=== PATIENT | female | born 1990 | race Caucasian/White ===

== ENCOUNTER 2021-03-16 12:38 | Emergency (ER) | payer OTHER, SELFPAY ==
[2021-03-16 12:51] VITALS: BP 141/111; PULSE 77; RESP 17; TEMP 36.6; O2SAT 99
--- NOTE | 2021-03-16 12:52 | ED.ALLEREA ---
HPI - Allergic Reaction General Chief complaint: Upper Respiratory Infection Stated complaint: Red Eyes,Itchy Throat Time Seen by Provider: 03/16/21 13:15 Source: patient and RN notes reviewed Mode of arrival: ambulatory Limitations: no limitations History of Present Illness HPI narrative: 30-year-old female presents with concern for 2-day history of red eyes, clogged ears, itchy throat. Reports she rubbed her left eye and the eye became swollen, irritated, more red. Reports she used [id number] eye redness drops and it made the redness in her eyes worse. Reports she takes Zyrtec daily and took Benadryl last night. She denies swollen lips, swollen tongue, difficulty swallowing, cough, shortness of breath. Denies any known allergy triggers. Denies known sick exposure. MD complaint: other (Eye redness) Related Data Home Medications Medication Instructions Recorded Confirmed drospirenone-ethinyl estradiol 1 tablet PO DAILY 03/16/21 03/16/21 [Ana (28)] Allergies Allergy/AdvReac Type Severity Reaction Status Date / Time iodine Allergy Itching Verified 03/16/21 13:02 Review of Systems Review of Systems: Narrative: CONSTITUTIONAL: Denies malaise, chills, sweats, or fever. EYES: Denies visual changes. Reports bilateral redness, watery discharge; reports left eye redness, swelling, irritation or worse. ENT: Denies rhinorrhea, congestion, sinus pain, otalgia. Reports scratchy sore throat. CARDIOVASCULAR: Denies chest pain, palpitations, or edema. RESPIRATORY: Denies cough or dyspnea. GASTROINTESTINAL: Denies abdominal pain, nausea, vomiting, diarrhea SKIN: Denies rash or itching. MUSCULOSKELETAL: Denies myalgia. NEUROLOGIC: Denies headache. All systems reviewed & are unremarkable except as noted in HPI and below PMFSH Social History Social History Gender identity (if verbalized by the patient): Female Comments At time of signature, agree with nursing past medical, surgical, social and family history. There is no relevant family history pertinent to the presenting complaint Exam Narrative: Exam Narrative: GENERAL: Well-appearing, well-nourished, and in no acute distress. HEAD: Normocephalic, atraumatic. EYES: PERRLA and EOMI. No nystagmus. Bilateral sclera injected, left conjunctive a injected, mild upper and lower left lid superficial edema, no purulent drainage noted ENT: Nares clear. Mucous membranes moist. TM pearly bonner with dull light reflex bilaterally; no tragal tenderness. Oropharynx without erythema or lesions. Tonsils not enlarged and without exudate. NECK: Supple. No lymphadenopathy. CHEST: No respiratory distress. Clear to auscultation. No bony deformities, no asymmetry. Speaks in full sentences. HEART: Regular rate and rhythm. SKIN: Warm, dry, no rash. NEURO: Alert and oriented x3. PSYCH: Normal mood and affect Course Course Emergency Course: Patient is aware of diagnosis, understands and agrees to treatment plan. Anticipatory guidance given. Patient agrees to follow-up as directed and is aware of reasons to seek care at the emergency department. Portions of this record may have been created with voice recognition software Vital Signs Vital signs: Vital Signs Temperature 97.9 F 03/16/21 12:51 Pulse Rate 77 03/16/21 12:51 Respiratory Rate 17 03/16/21 12:51 Blood Pressure 141/111 H 03/16/21 12:51 Pulse Oximetry 99 03/16/21 12:51 Temperature 97.9 F 03/16/21 12:51 Pulse Rate 77 03/16/21 12:51 Respiratory Rate 17 03/16/21 12:51 Blood Pressure 141/111 H 03/16/21 12:51 Pulse Oximetry 99 03/16/21 12:51 Reviewed. MDM - Allergic Reaction MDM Narrative Medical decision making narrative: No soft palate or uvula edema, no tongue or lip edema or other mucosal involvement, no respiratory compromise, no stridor, no wheezing, no wheezing, no history of syncope, no hypotension, no nausea, vomiting, or diarrhea. Consideration of the following conditions may be
== END 2021-03-16 13:34 | disposition home or self-care (01) ==
PROVIDERS: Emergency Provider Nurse Practitioner; PCP Internal Medicine
DX: J06.9 Acute upper respiratory infection, unspecified (principal); H10.31 Unspecified acute conjunctivitis, right eye
CPT/HCPCS: 87081; 87880; 99203; G0463

== ENCOUNTER 2021-07-29 15:30 | Emergency (ER) | payer OTHER, SELFPAY ==
--- NOTE | ~2021-07-29 | CT_ITS ---
EXAMINATION: CT cervical spine wo con DATE: 07/29/2021 16:52 INDICATION: Neck pain TECHNIQUE: Computed tomography (CT) of the cervical spine was performed without intravenous contrast. The dose-length product was 511 mGy-cm. Automated exposure control and iterative reconstruction tech [employer] were employed. COMPARISON: None FINDINGS: There is straightening of cervical lordosis. There is normal alignment. Vertebral body and disc heights are preserved. No fracture, subluxation or dislocation. Craniovertebral junction is norm al. No evidence for perched facet. Odontoid process within normal limits. No significant degenerative change of the uncinate or facet joints. Lung apices are normal. No significant spinal stenosis ident ified. Paraspinal soft tissues are unremarkable. IMPRESSION: 1. No acute abnormality of the cervical spine. If there is radiculopathy or myelopathy, consider valery elation with MRI on a nonemergent basis. Reviewed, dictated and finalized at location A. IMPRESSION: 1. No acute abnormality of the cervical spine. If there is radiculopathy or mye lopathy, consider correlation with MRI on a nonemergent basis.
[2021-07-29 15:34] VITALS: BP 161/99; PULSE 87; RESP 16; O2SAT 100
--- NOTE | 2021-07-29 15:50 | ED.HA ---
HPI - Headache General Chief Complaint: Headache <BRADY Hurley Last Filed: 07/29/21 17:22> Stated Complaint: migraine <BRADY Hurley Last Filed: 07/29/21 17:22> Time Seen by Provider: 07/29/21 15:33 <BRADY Hurley Last Filed: 07/29/21 17:22> Source: patient <BRADY Hurley Last Filed: 07/29/21 17:22> Mode of arrival: ambulatory <BRADY Hurley Last Filed: 07/29/21 17:22> Limitations: no limitations <BRADY Hurley Last Filed: 07/29/21 17:22> History of Present Illness HPI Narrative: This is a 31 year old female that presents to the ER for migraine headache today. Reports history of migraines. She has taken Excedrine with little relief today. Reports a pounding headache associated with photophobia and nausea. Also reports neck pain radiating into her left arm. Reports she intermittently feels tingling in the left arm which has been ongoing for some time. No certain injuries or trauma. Although she does have a very physical job. Denies fever, vision changes, vomiting, numbness, or weakness. <BRADY Hurley Last Filed: 07/29/21 17:22> Related Data Home Medications: Home Medications Medication Instructions Recorded Confirmed drospirenone-ethinyl estradiol 1 tablet PO DAILY 03/16/21 03/16/21 [Ana (28)] <BRADY Hurley Last Filed: 07/29/21 17:22> Allergies/Adverse Reactions: Allergies Allergy/AdvReac Type Severity Reaction Status Date / Time iodine Allergy Itching Verified 07/29/21 15:37 <BRADY Hurley Last Filed: 07/29/21 17:22> Review of Systems Review of Systems: CONSTITUTIONAL: Denies fever EYES: Denies visual changes GASTROINTESTINAL: Denies vomiting SKIN: Denies rash MUSCULOSKELETAL: Reports joint pain, and myalgia. NEUROLOGIC: Reports headache. Denies numbness, or weakness. <Stefanie Urbina PA-C - Last Filed: 07/29/21 17:22> All systems reviewed & are unremarkable except as noted in HPI and below <Stefanie Urbina PA-C - Last Filed: 07/29/21 17:22> [facility] Past Medical History Medical History: Medical History (Updated 07/29/21 @ 17:20 by Stefanie Urbina PA-C) No active medical problems <Stefanie Urbina PA-C - Last Filed: 07/29/21 17:22> Social History Social History: Social History (Updated 07/29/21 @ 15:56 by Stefanie Urbina PA-C) Substance use: never Gender identity (if verbalized by the patient): Female <Stefanie Urbina PA-C - Last Filed: 07/29/21 17:22> Exam Narrative: GENERAL: Well-appearing, obese, and in no acute distress. HEAD: Normocephalic, atraumatic. EYES: PERRLA and EOMI. ENT: Nares clear, no rhinorrhea or epistaxis. Mucous membranes moist. Oropharynx without tonsillar hypertrophy exudate or other lesions. Bilateral TMs pearly bonner non-bulging NECK: Supple. No adenopathy or masses. No midline cervical spine tenderness CHEST: Clear to auscultation. No respiratory distress. No wheezes rales or rhonchi HEART: Regular rate and rhythm. No murmur heard. Normal peripheral pulses. EXTREMITIES: Normal range of motion. No edema. Strength equal in bilateral upper extremities (5/5) SKIN: Warm, dry, no rash. NEURO: No focal deficits. Alert and oriented x3. Cranial nerves II through XII grossly intact PSYCH: Normal mood and affect <Stefanie Urbina PA-C - Last Filed: 07/29/21 17:22> Course INTAKE COORDINATOR/PA Physician Supervision I did not see this patient nor was the care plan discussed with me. I was available for evaluation and consultation, I agree with the documentation as above <Tevin Montero MD - Last Filed: 07/29/21 17:44> Vital Signs Vital signs: Vital Signs Pulse Rate 87 07/29/21 15:34 Respiratory Rate 16 07/29/21 15:34 Blood Pressure 161/99 H 07/29/21 15:34 Pulse Oximetry 100 07/29/21 15:34 Pulse Rate 81 07/29/21 17:28 Respiratory Rate 16 07/29/21 17:28 Blood Pressure 162/88 H
[2021-07-29] MEDS: METOCLOPRAMIDE HCL INJ 10 MG/2 ML VIAL IV PUSH (16:07)
[2021-07-29] MEDS: KETOROLAC 30 MG/ML VIAL (*BKC) IV PUSH (16:07)
[2021-07-29] MEDS: diphenhydrAMINE HCl INJ 50 MG/ML VIAL 25 MG IV PUSH (16:08)
[2021-07-29] MEDS: SODIUM CHLORIDE 0.9% IV 1,000 ML 999 ML IV CONT (16:09)
[2021-07-29 17:28] VITALS: BP 162/88; PULSE 81; RESP 16; O2SAT 98
== END 2021-07-29 17:30 | disposition home or self-care (01) ==
PROVIDERS: Emergency Provider Emergency Medicine; PCP Internal Medicine
DX: G43.909 Migraine, unspecified, not intractable, without status migrainosus (principal); M62.830 Muscle spasm of back
CPT/HCPCS: 72125; 96365; 96375; 99284; J0131; J1100; J1200; J1885; J2765; J7030

== ENCOUNTER 2021-09-27 10:50 | Emergency (ER) | payer OTHER, SELFPAY ==
[2021-09-27 11:33] VITALS: BP 150/75; PULSE 95; RESP 16; TEMP 36.7; O2SAT 99
--- NOTE | 2021-09-27 13:05 | ED.URI ---
HPI - URI/Sore Throat General Stated Complaint: nasal congestion,lt ear discomfort,sinus pressure Time Seen by Provider: 09/27/21 13:05 Source: patient and RN notes reviewed Mode of arrival: ambulatory Limitations: no limitations History of Present Illness HPI Narrative: 31-year-old female presents concern for nasal congestion, left ear pain, sinus pressure, cough that started 3 to 4 days ago. She reports she was tested for Covid with a rapid test yesterday at work which is negative, the obtained PCR for which she does not have the results yet. She reports she has been trying multiple [id number]-[id number] remedies without relief. She reports history of sinus and ear infections. MD elicited complaint: cough and sore throat Related Data Home Medications Medication Instructions Recorded Confirmed drospirenone-ethinyl estradiol 1 tablet PO DAILY 03/16/21 03/16/21 [Ana (28)] Allergies Allergy/AdvReac Type Severity Reaction Status Date / Time iodine Allergy Itching Verified 07/29/21 15:37 Review of Systems Review of Systems: CONSTITUTIONAL: Reports malaise. Chills, sweats, or fever. EYES: Denies visual changes, redness, or discharge. ENT: Reports rhinorrhea, congestion, sinus pain, otalgia. Denies sore throat. CARDIOVASCULAR: Denies chest pain, palpitations, or edema. RESPIRATORY: Reports cough. Denies dyspnea. GASTROINTESTINAL: Denies abdominal pain, nausea, vomiting, diarrhea SKIN: Denies rash or itching. MUSCULOSKELETAL: Denies myalgia. NEUROLOGIC: Denies headache. All systems reviewed & are unremarkable except as noted in HPI and below PMFSH Past Medical History Medical History (Updated 09/27/21 @ 13:14 by Kallie Moya NP) No active medical problems Social History Social History (Updated 07/29/21 @ 15:56 by Stefanie Urbina PA-C) Substance use: never Gender identity (if verbalized by the patient): Female Comments At time of signature, agree with nursing past medical, surgical, social and family history. There is no relevant family history pertinent to the presenting complaint Exam Narrative: GENERAL: Well-appearing, well-nourished, and in no acute distress. HEAD: Normocephalic EYES: PERRLA, conjunctivae clear ENT: Nares clear, turbinates edematous and erythematous, clear discharge. Mucous membranes moist. TM pearly bonner with dull light reflex bilaterally; no tragal tenderness. Oropharynx not erythematous without lesions. Tonsils not enlarged and without exudate, no drooling, no hoarseness, no trismus, uvula midline. NECK: Supple. No lymphadenopathy CHEST: Clear to auscultation, breath sounds equal. No wheezing, rhonchi, rales, or stridor. No respiratory distress, speaks in full sentences. HEART: Regular rate and rhythm. No murmur heard. SKIN: Warm, dry, no rash. NEURO: Alert and oriented x3. PSYCH: Normal mood and affect Course Course Emergency Course: Patient is aware of diagnosis, understands and agrees to treatment plan. Anticipatory guidance given. Patient agrees to follow-up as directed and is aware of reasons to seek care at the emergency department. Portions of this record may have been created with voice recognition software Vital Signs Vital signs: Vital Signs Temperature 98.0 F 09/27/21 11:33 Pulse Rate 95 09/27/21 11:33 Respiratory Rate 16 09/27/21 11:33 Blood Pressure 150/75 H 09/27/21 11:33 Pulse Oximetry 99 09/27/21 11:33 Temperature 98.0 F 09/27/21 11:33 Pulse Rate 95 09/27/21 11:33 Respiratory Rate 16 09/27/21 11:33 Blood Pressure 150/75 H 09/27/21 11:33 Pulse Oximetry 99 09/27/21 11:33 Reviewed. Patient has been instructed to follow up with her primary care provider within the next week regarding her elevated blood pressure today. MDM - URI/Sore Throat MDM Narrative Medical decision making narrative: Differential diagnosis considered: Reid virus, strep pharyngitis, allergic rhinitis, upper respiratory tract infection, sinusitis, rhinos
== END 2021-09-27 13:16 | disposition home or self-care (01) ==
PROVIDERS: Emergency Provider Nurse Practitioner; PCP Internal Medicine
DX: J32.9 Chronic sinusitis, unspecified (principal); J40 Bronchitis, not specified as acute or chronic
CPT/HCPCS: 99213; G0463

== ENCOUNTER 2022-02-07 17:24 | Emergency (ER) | payer OTHER, SELFPAY ==
--- NOTE | ~2022-02-07 | CT_ITS ---
EXAMINATION: CT brain wo con DATE: 02/07/2022 21:40 INDICATION: Head injury. TECHNIQUE: Computed tomography (CT) of the head was performed without intravenous contrast. The mA wa s adjusted according to patient size. Iterative reconstruction technique was employed. The dose-lengt h product was 605.33 mGy-cm. COMPARISON: None FINDINGS: There is no intracranial hemorrhage, acute infarction, or abnormal intracranial mass lesion . The ventricles are normal in size. The orbits are normal. The paranasal sinuses are clear. The mast oid air cells are normal. IMPRESSION: 1. Normal brain. Reviewed, dictated and finalized at location A. IMPRESSION: 1. Normal brain.
--- NOTE | ~2022-02-07 | CT_ITS ---
EXAMINATION: CT cervical spine wo con DATE: 02/07/2022 21:41 INDICATION: Neck pain. Head injury. TECHNIQUE: Computed tomography (CT) of the cervical spine was performed without intravenous contrast. Automated exposure control and iterative reconstruction technique were employed. The dose-length pro duct was 661.69 mGy-cm. COMPARISON: Cervical spine CT 07/29/2021 FINDINGS: There is hypolordosis of cervical spine. Vertebral body heights and intervertebral disc hei ghts are normal. At C7-T1, there is mild bilateral facet joint osteoarthritis. No neural foraminal st enosis or central canal stenosis. IMPRESSION: 1. No fracture. Reviewed, dictated and finalized at location A. IMPRESSION: 1. No fracture.
--- NOTE | ~2022-02-07 | CT_ITS ---
EXAMINATION: CT thoracic spine wo con DATE: 02/07/2022 21:41 INDICATION: Neck pain. Back midline tenderness. TECHNIQUE: Computed tomography (CT) of the thoracic spine was performed without intravenous contrast. Automated exposure control and iterative reconstruction technique were employed. The dose-length pro duct was 1503.41 mGy-cm. COMPARISON: None FINDINGS: There is 7 degrees levocurvature of upper thoracic spine. There is mild chronic anterior we dging of T10-T12 vertebral bodies. There is mildly decreased disc height from T3-T4 through T11-T12. There is multilevel facet joint osteoarthritis, severe bilaterally at T7-T8 and T8-T9. There is multi level mild neural frontal stenosis. There is moderate neural foraminal stenosis on the right at T7-T8 and T8-T9 and on the left at T8-T9. No central canal stenosis. IMPRESSION: 1. Moderate thoracic spondylosis. Reviewed, dictated and finalized at location A.
[2022-02-07 17:26] VITALS: BP 153/89; PULSE 89; RESP 16; TEMP 36.8; O2SAT 99
[2022-02-07 20:24] VITALS: RESP 16
--- NOTE | 2022-02-07 21:18 | PC.NURSE ---
Pt resting in room. Awaiting orders or disposition.
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
[2022-02-07] MEDS: KETOROLAC (*BKC) 60 MG/2 ML VIAL IM (22:22)
== END 2022-02-07 22:35 | disposition home or self-care (01) ==
PROVIDERS: Emergency Provider Emergency Medicine; PCP Internal Medicine
DX: S16.1XXA Strain of muscle, fascia and tendon at neck level, initial encounter (principal); Y04.2XXA Assault by strike against or bumped into by another person, initial encounter; Y92.199 Unspecified place in other specified residential institution as the place of occurrence of the external cause; Y99.0 Civilian activity done for income or pay
CPT/HCPCS: 70450; 72125; 72128; 96372; 99284; J1885

== ENCOUNTER 2022-06-04 10:15 | Emergency (ER) | payer OTHER, SELFPAY ==
[2022-06-04 10:26] VITALS: BP 136/96; PULSE 71; RESP 18; TEMP 36.7; O2SAT 98
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
== END 2022-06-04 10:58 | disposition home or self-care (01) ==
PROVIDERS: Emergency Provider Nurse Practitioner Family; PCP Physician Assistant
DX: S16.1XXA Strain of muscle, fascia and tendon at neck level, initial encounter (principal); Y04.8XXA Assault by other bodily force, initial encounter; Y99.0 Civilian activity done for income or pay; M54.12 Radiculopathy, cervical region; E03.9 Hypothyroidism, unspecified
CPT/HCPCS: 99213; G0463

== ENCOUNTER 2024-05-19 10:03 | Emergency (ER) | payer BC, SELFPAY ==
[2024-05-19 10:15] VITALS: BP 160/106; PULSE 86; RESP 20; TEMP 36.7; O2SAT 96
--- NOTE | 2024-05-19 10:32 | ED.SKABFB ---
HPI - Skin/Abscess/Foreign Bdy General Chief complaint: Skin/Abscess/Foreign Body Stated complaint: Bump On Nose Time Seen by Provider: 05/19/24 10:32 Source: patient, RN notes reviewed and old records reviewed Mode of arrival: ambulatory Limitations: no limitations History of Present Illness HPI narrative: Patient presents with complaints of large pustule to right side of the bridge of her nose. She reports this has been present for few days, but is getting bigger. She has tried topicals to resolve her problem, but states that symptoms are getting worse. She denies any injury or trauma. She reports that the affected area is tender to the touch. There is no drainage. She denies any fever, chills, sweats. Related Data Home Medications Medication Instructions Recorded Confirmed drospirenone 3 mg-ethinyl 1 tablet PO DAILY 06/04/22 05/19/24 estradiol 0.03 mg tablet rizatriptan 10 mg disintegrating 10 mg PO DIRECTED 05/19/24 05/19/24 tablet Allergies Allergy/AdvReac Type Severity Reaction Status Date / Time iodine Allergy Itching Verified 06/04/22 10:21 Review of Systems Review of Systems: All systems reviewed & are unremarkable except as noted in HPI and below Constitutional: Constitutional: Reports no additional constitutional complaints ENT: Reports system reviewed and no additional complaints, except as documented Cardiovascular: Cardiovascular: Reports no additional cardiovascular complaints Respiratory: Respiratory: Reports no additional respiratory complaints Gastrointestinal: Gastrointestinal: Reports no additional gastrointestinal complaints Integumentary/Breasts: Skin/Breast: Reports system reviewed and no additional complaints, except as docu and Reports as per HPI [facility] Past Medical History Medical History No active medical problems Surgical History Surgical History History of tonsillectomy Social History Social History Substance use: never Gender identity (if verbalized by the patient): Female Exam Const: General: cooperative, no acute distress, alert and awake Orientation/consciousness: oriented to person, oriented to place and oriented to time HENMT: Head: normal to inspection Face/Nose/Sinus: Abnormal external nose present nasal tenderness ( 1 cm diameter pustule, right side) Resp: Effort & Inspection: normal respiratory effort and able to speak in complete sentences Auscultation: clear to auscultation bilaterally, no crackles, no rales, no rhonchi and no wheezes Cardio: Palpation: normal PMI Rate: regular rate Rhythm: regular rhythm Heart sounds: S1 normal heart sound present and S2 normal heart sound present Neuro: General: oriented to person, oriented to place and oriented to time Cranial nerves: Yes CN's II-XII intact bilaterally Psych: Appearance: grossly normal Thought process: Normal thought process present Insight: Good insight present (Psych) Judgement: Good judgement present (Psych) Course Course Level of Care: Express Care Visit Vital Signs Vital signs: Vital Signs Temperature 98.1 F 05/19/24 10:15 Pulse Rate 86 05/19/24 10:15 Respiratory Rate 20 05/19/24 10:15 Blood Pressure 160/106 H 05/19/24 10:15 Pulse Oximetry 96 05/19/24 10:15 Oxygen Delivery Room Air 05/19/24 10:15 Temperature 98.1 F 05/19/24 10:15 Pulse Rate 86 05/19/24 10:15 Respiratory Rate 20 05/19/24 10:15 Blood Pressure 158/98 H 05/19/24 10:40 Pulse Oximetry 96 05/19/24 10:15 Oxygen Delivery Room Air 05/19/24 10:15 MDM - Skin/Abscess/Foreign Bdy MDM Narrative Medical decision making narrative: patient with large single pustule to right side bridge of nose. Not amenable to I&D given location. Start clindamycin and warm compresses. Follow-up with primary care provid
[2024-05-19 10:40] VITALS: BP 158/98
== END 2024-05-19 14:00 | disposition home or self-care (01) ==
PROVIDERS: Emergency Provider Nurse Practitioner Family; PCP Physician Assistant
DX: J34.0 Abscess, furuncle and carbuncle of nose (principal); R03.0 Elevated blood-pressure reading, without diagnosis of hypertension
CPT/HCPCS: 99213; G0463